=== PATIENT | female | born 1955 | race Caucasian/White ===

== ENCOUNTER 2017-04-13 23:39 | Emergency (ER) | payer OTHER ==
[~2017-04-13] VITALS: Ht 160 cm; Wt 122.7 kg
[~2017-04-13 23:39] MED LIST: ALBU1AER9 INH; FLUT0.0529; TRAM37.52 PO
[2017-04-13 23:46] VITALS: TEMP 36.5; Ht 160 cm; Wt 122.7 kg
[2017-04-14] MEDS ORDERED: KETOROLAC TROMETHAMINE 30 MG/ML VIAL IM STA (00:02)
[2017-04-14] MEDS ORDERED: LIDODERM (LIDOCAINE) PATCH 5% TD STA (00:02)
[2017-04-14] MEDS ORDERED: DIAZEPAM 5MG TAB PO ONE (00:15)
[2017-04-14] MEDS ORDERED: FLUO20CA35 PO (00:33)
--- NOTE | 2017-04-14 00:37 | EMERGENCY ROOM VISIT NOTE ---
History Report prepared by Yolande: Wander Brown Under the Supervision of: Dr. Cassidy Styles D.O. First contact with patient: 23:49 Chief Complaint: BACK PAIN Stated Complaint: BACK PAIN History of Present Illness The patient is a 61 year old female who presents to the Emergency Room with complaints of "progressively worsening" back pain that began to worsen last night. The patient states that she has had chronic back pain since 2010 when she had a ruptured and herniated disc. She did not have any surgical intervention following the injury, and has had pain since. The pain is usually more so on the left side in her left buttocks, and in her left leg. She states that she has more mobility of her right leg than her left as well. She denies any numbness or weakness in her lower extremities, and states that she only has the pain. The patient's pain worsened last night when she got out of bed to use the restroom. No falls or trauma. The pain she felt after standing up is "much worse" than her baseline chronic pain. She usually takes Tramadol at home as needed for pain, and has taken Cyclobenzaprine as a muscle relaxer. She denies any urinary or bowel movement irregularities recently, aside from having the flu about a month ago. 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 A total of 10 systems reviewed and were otherwise negative. Past Medical & Surgical Medical Problems: (1) DIVERTICULITIS COLON (W/O MENT OF HEMORRHAGE) (2) TOBACCO USE DISORDER Family History No pertinent family histories secondary to age. Social History Smoking Status: Current Every Day Smoker Alcohol Use: none Drug Use: none Housing Status: lives with family Occupation Status: retired Current/Historical Medications Scheduled Diazepam (Valium), 5 MG PO TID Diclofenac (Voltaren), 75 MG PO BID Lidocaine (Lidoderm Patch 5%), 1 PATCH TD DAILY Scheduled PRN Cyclobenzaprine Hcl (Flexeril), 10 MG PO TID PRN for SPASMS Tramadol-Acetaminophen (Ultracet), 1 TAB PO TID PRN for Pain Allergies Coded Allergies: Penicillins (Unverified Adverse Reaction, Unknown, FEVER, HIVES, 4/28/15) Uncoded Allergies: SULFA (Allergy, Intermediate, UNKNOWN, 07/27/12) BIAXIN (Allergy, Unknown, fever,n/v,headache,rash, 03/28/03) Physical Exam Vital Signs Date Time Temp Pulse Resp B/P (MAP) Pulse Ox O2 Delivery O2 Flow Rate FiO2 04/14/17 01:47 88 18 158/98 98 Room Air 04/13/17 23:46 36.5 65 18 143/81 98 Room Air Physical Exam GENERAL: Obese patient, alert, well appearing, well nourished, no distress, non- toxic EYE EXAM: normal conjunctiva, PERRL and EOM's grossly intact OROPHARYNX: no exudate, no erythema, lips, buccal mucosa, and tongue normal and mucous membranes are moist NECK: supple, no nuchal rigidity, no adenopathy, non-tender LUNGS: Clear to auscultation. Normal chest wall mechanics HEART: no murmurs, S1 normal and S2 normal ABDOMEN: abdomen soft, non-tender, normo-active bowel sounds, no masses, no rebound or guarding. BACK: Back is symmetrical on inspection and there is no deformity, no midline tenderness, no CVA tenderness. There is no reproducible tenderness. SKIN: no rashes and no bruising UPPER EXTREMITIES: upper extremities are grossly normal. LOWER EXTREMITIES: No pitting edema. Positive straight leg raise on the left, negative on the right. NEURO EXAM: Normal sensorium Medical Decision & Procedures Laboratory Results Test 04/14/17 00:50 Urine Color DK YELLOW Urine Appearance CLOUDY (CLEAR) Urine pH 5.0 (4.5-7.5) Urine Specific [place] 1.031 (1.000-1.030) Urine Protein NEG (NEG) Urine Glucose (UA) NEG (NEG) Urine Ketones TRACE (NEG) Urine Occult Blood NEG (NEG) Urine Nitrite NEG (NEG) Urine Bilirubin NEG (NEG) Urine Urobilinogen POS (NEG) Urine Leukocyte Esterase NEG (NEG) Urine WBC (Auto) 1-5 /hpf (0-5) Urine RBC (Auto) 0-4 /hpf (0-4) Urine Hyaline Casts (Auto) 1-5 /lpf (0-5) Urine Epithelial Cells (Auto) >30 /lpf (0-5) Urine Bacteria (Auto) NEG (NEG) Urine Crystals CALCIUM OXALATE (NONE Laboratory results per my review. Medications Administered Medications (Trade) Dose Ordered Sig/Luca Route Start Time Stop Time Status Last Admin Dose Admin Lidocaine (Lidoderm Patch 5%) 1 patch NOW STAT TD 04/14/17 00:02 04/14/17 00:06 DC 04/14/17 00:24 1 PATCH Ketorolac Tromethamine (Toradol Inj) 30 mg NOW STAT IM 04/14/17 00:02 04/14/17 00:07 DC 04/14/17 00:18 30 MG Diazepam (Valium Tab) 5 mg NOW ONCE PO 04/14/17 00:15 04/14/17 00:16 DC 04/14/17 00:18 5 MG ED Course 2354: The patient was evaluated in room A4. A complete history and physical exam was performed. 0002: Ordered Toradol 30 mg IM, Lidocaine 1 patch TD. 0015: Ordered Diazepam 5 mg PO. 0125: I checked on the patient at this time. She is feeling better. She is going to get up and try to move around. 0144: The nursing staff has informed me that the patient ambulated well, and feels much better with motion. The patient is ready to be discharged home. Medical Decision Differential diagnosis: Etiologies such as musculoskeletal, disc herniation, fracture, aortic disease, metastatic disease, cord compression, discitis, infection, renal colic, gastrointestinal, acute exacerbation of chronic back pain, sciatica, cauda equina, as well as others were entertained. Pt with chronic low back pain and acute nontraumatic exacerbation. No sx to suggest cauda equina, no risk factors for epidural abscess or hematoma. Pt improved here with meds, able to ambulate, no evidence of urinary pathology. Doubt vascular etiology. Doubt occult infectious etiology. Pt well appearing here. Discussed sx to watch/return for, f/u with PCP, possible outpt MRI and options available for this given her hx of claustrophobia. Pt verbalized understanding of all of this and was agreeable with the plan. Medication Reconcilliation Current Medication List: was personally reviewed by me Blood Pressure Screening Patient's blood pressure: Elevated blood pressure Blood pressure disposition: Elevated BP felt to be situational Impression Primary Impression: Low back pain Additional Impression: Sciatica Scribe Attestation The scribe's documentation has been prepared under my direction and personally reviewed by me in its entirety. I confirm that the note above accurately reflects all work, treatment, procedures, and medical decision making performed by me. Departure Information Dispostion Home / Self-Care Prescriptions Lidocaine (Lidoderm Patch 5%) 1 Ea Tdsy 1 PATCH TD DAILY for Pain, #1 BOX Prov: Cassidy Styles, DO 04/14/17 Diazepam (Valium) 5 Mg Tab 5 MG PO TID for Pain, #20 TAB Prov: Cassidy Styles, DO 04/14/17 Referrals Mane San M.D. (PCP) Patient Instructions My [facility] Additional Instructions Please follow-up with your family doctor and discuss with them sedation and open MRI possibly for additional evaluation of your back pain. Please use the medications as prescribed. If you have worsening pain, are unable to walk, develop numbness or tingling, have difficulty controlling bowel or bladder function, develop fevers, vomiting, abdominal pain, or you have any other new or concerning symptoms, please return to the emergency room. Problem Qualifiers Primary Impression: Low back pain Chronicity: chronic Back pain laterality: right Sciatica presence: with sciatica Sciatica laterality: sciatica of left side Qualified Codes: M54.42 - Lumbago with sciatica, left side; G89.29 - Other chronic pain Additional Impression: Sciatica Laterality: left Qualified Codes: M54.32 - Sciatica, left side
[2017-04-14] MEDS ORDERED: DICL-201 PO (01:04)
[2017-04-14] MEDS ORDERED: CYCL10TA6 PO (01:07)
[2017-04-14 01:47] VITALS: BP 158/98; PULSE 88; O2SAT 98
[2017-04-14] MEDS ORDERED: DIAZ-165 PO (01:57)
[2017-04-14] MEDS ORDERED: NF656 TD (01:57)
[2017-04-15] MEDS ORDERED: LDDP5 TOP (19:40)
[2017-04-15] MEDS ORDERED: DIAZ-165 PO (19:40)
== END 2017-04-14 02:12 | disposition home or self-care (01) ==
LOC: C.EDB 23:40 → C.EDA 04-14 02:12
DX: M54.42 Lumbago with sciatica, left side (principal); G89.29 Other chronic pain; K57.32 Diverticulitis of large intestine without perforation or abscess without bleeding; F17.210 Nicotine dependence, cigarettes, uncomplicated

== ENCOUNTER 2017-04-15 18:53 | Inpatient (IN) | payer OTHER ==
[~2017-04-15] VITALS: Ht 160 cm; Wt 48.8 kg
[~2017-04-15 18:53] MED LIST changes: -ALBU1AER9 INH; +CYCL10TA6 PO; +DIAZ-165 PO; +DICL-201 PO; -FLUT0.0529; +NF656 TD
[2017-04-15] MEDS ORDERED: ONDANSETRON INJ 2 MG/ML 2 ML VIAL IV STA (19:22)
[2017-04-15] MEDS ORDERED: KETOROLAC TROMETHAMINE 30 MG/ML VIAL IV STA (19:22)
[2017-04-15 19:40] LABS: BASO % 0.1 %; BASO ABS # 0.01 K/uL (0-0.2); EOS % 1.2 %; EOS ABS # 0.08 K/uL (0-0.5); HEMATOCRIT 46.1 % (37-47); HEMOGLOBIN 16.1 g/dL (12.0-16.0); IG# 0.01 K/uL (0.00-0.02); LYMPH % 31.1 %; LYMPH ABS # 2.08 K/uL (1.2-3.4); MEAN CELL VOLUME 89.7 fL (80-100); MEAN CORPUSCULAR HEMOGLOBIN 31.3 pg (25-34); MEAN CORPUSCULAR HGB CONC 34.9 g/dl (32-36); MEAN PLATELET VOLUME 9.8 fL (7.4-10.4); MONO ABS # 0.47 K/uL (0.11-0.59); NEUT % 60.5 %; NEUT ABS # 4.03 K/uL (1.4-6.5); PLATELET COUNT 242 K/uL (130-400); RED CELL DISTRIBUTION WIDTH CV 12.9 % (11.5-14.5); RED CELL DISTRIBUTION WIDTH SD 42.4 fL (36.4-46.3); WHITE BLOOD COUNT 6.68 K/uL (4.8-10.8)
[2017-04-15] MEDS ORDERED: DIAZ-165 PO (19:40)
[2017-04-15] MEDS ORDERED: LDDP5 TOP (19:40)
--- NOTE | 2017-04-15 19:52 | EMERGENCY ROOM VISIT NOTE ---
History Report prepared by Yolande: Angelica Bae Under the Supervision of: Dr. Chalino Huitron M.D. 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 Per daughter, the patient has been having back spasms, buttock pain, bilateral leg pain, leg weakness, and loss of appetite. She currently rates her pain a 10/10 in severity. The patient has a history of chronic back pain due to a herniated disc. The patient states that she cannot get out of bed. She was recently seen in the ED for similar symptoms. She notes that she is paranoid and scared of MRIs. She has taken Valium and Tramadol. She reports the pain is worsened with movement. She denies any falls. She denies any history of back surgeries. 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 Review of Systems See HPI for pertinent positives & negatives. A total of 10 systems reviewed and were otherwise negative. Past Medical & Surgical Medical Problems: (1) Asthma (2) borken jaw (3) Bronchitis (4) DIVERTICULITIS COLON (W/O MENT OF HEMORRHAGE) (5) Hernia (6) Intestinal gangrene (7) PNA (pneumonia) (8) TOBACCO USE DISORDER (9) Tumors (10) Ulcer Old medical records were reviewed. Nurse's notes were reviewed and I agree with. Family History Diabetes mellitus FHx: cancer Kidney disease Kidney stones Seizures Social History Smoking Status: Current Every Day Smoker (1 ppd) Alcohol Use: none Drug Use: none Housing Status: lives with family Occupation Status: retired Current/Historical Medications Scheduled Diazepam (Valium), 5 MG PO TID Scheduled PRN Cyclobenzaprine Hcl (Flexeril), 10 MG PO TID PRN for SPASMS Lidocaine (Lidocaine), 1 PATCH TOP DAILY PRN for Pain Tramadol-Acetaminophen (Ultracet), 1 TAB PO TID PRN for Pain Allergies Coded Allergies: Clarithromycin (Verified Allergy, Intermediate, RASH, DOAN, FEVER, N/V, ) Sulfa Antibiotics (Verified Allergy, Unknown, "CAN'T REMEMBER", 04/15/17) Penicillins (Verified Adverse Reaction, Unknown, FEVER, HIVES, 04/15/17) Physical Exam Vital Signs Date Time Temp Pulse Resp B/P (MAP) Pulse Ox O2 Delivery O2 Flow Rate FiO2 04/15/17 20:35 60 20 135/79 96 Room Air 04/15/17 19:01 36.3 70 18 135/82 94 Room Air Physical Exam General: Uncomfortable appearing middle-aged female in no acute distress. Complains of back pain worsened with movement. HEENT: Normal cephalic atraumatic. Pupils are equal round and reactive to light. Extraocular movements are intact. Oropharynx is pink with moist mucous membranes. No swelling of the mouth lips or tongue. Neck: Supple with a midline trachea. No meningeal signs or stiffness, no JVD or bruits. No Stridor. Chest: Clear to auscultation bilaterally. No wheezes or rhonchi. No increased work of breathing. Heart: regular rate and rhythm. Abdomen: Soft nontender, nondistended without rebound guarding or rigidity. Extremities: No cyanosis clubbing or edema. No calf tenderness or assymetry. No numbness. Mild weakness to left leg. Spine/Back. Tender to palpation in low back. Significant pain with movement. Skin: Good turgor without rashes. Neurologic exam: Cranial nerves two through 12 are intact. Motor and sensation are intact and symmetrical throughout. Medical Decision & Procedures ER Provider Diagnostic Interpretation: Radiology results as stated below per my review and radiologist interpretation: LUMBAR SPINE WITHOUT CLINICAL HISTORY: Low back pain. Back spasms. COMPARISON STUDY: No previous studies for comparison. TECHNIQUE: Axial images of the lumbar spine were obtained without IV contrast. Sagittal and coronal reconstructions were viewed. FINDINGS: Alignment of the lumbar spine is anatomic. Vertebral body heights are maintained. No fracture or osseous lesion is identified. Paravertebral soft tissues are unremarkable. There is moderate atherosclerotic plaque of the abdominal aorta which is normal in caliber. Central canal and neural foramen are suboptimally assessed by CT. However, there is mild multilevel degenerative disc disease and moderate multilevel facet arthrosis. There is no evidence for severe central canal stenosis. There is mild multilevel neural foraminal stenosis and suspected mild multilevel central canal stenosis. IMPRESSION: 1. No acute lumbar spine fracture or subluxation. 2. Mild multilevel degenerative disc disease and moderate multilevel facet arthrosis of the lumbar spine. Suboptimal evaluation of central canal and neural foramen given CT technique. Suspected mild multilevel central canal or neural foraminal stenosis. No disc herniation identified by CT. Electronically signed by: Favio Biswas M.D. 04/15/2017 8:40 PM Dictated Date/Time: 04/15/2017 8:34 PM Laboratory Results 04/15/17 19:30 Red Blood Count 5.14, Mean Corpuscular Volume 89.7, Mean Corpuscular Hemoglobin 31.3, Mean Corpuscular Hemoglobin Concent 34.9, Mean Platelet Volume 9.8, Neutrophils (%) (Auto) 60.5, Lymphocytes (%) (Auto) 31.1, Monocytes (%) (Auto) 7.0, Eosinophils (%) (Auto) 1.2, Basophils (%) (Auto) 0.1, Neutrophils # (Auto) 4.03, Lymphocytes # (Auto) 2.08, Monocytes # (Auto) 0.47, Eosinophils # (Auto) 0.08, Basophils # (Auto) 0.01 04/15/17 19:30 Test 04/15/17 19:30 White Blood Count 6.68 K/uL (4.8-10.8) Red Blood Count 5.14 M/uL (4.2-5.4) Hemoglobin 16.1 g/dL (12.0-16.0) Hematocrit 46.1 % (37-47) Mean Corpuscular Volume 89.7 fL (80-100) Mean Corpuscular Hemoglobin 31.3 pg (25-34) Mean Corpuscular Hemoglobin Concent 34.9 g/dl (32-36) Platelet Count 242 K/uL (130-400) Mean Platelet Volume 9.8 fL (7.4-10.4) Neutrophils (%) (Auto) 60.5 % Lymphocytes (%) (Auto) 31.1 % Monocytes (%) (Auto) 7.0 % Eosinophils (%) (Auto) 1.2 % Basophils (%) (Auto) 0.1 % Neutrophils # (Auto) 4.03 K/uL (1.4-6.5) Lymphocytes # (Auto) 2.08 K/uL (1.2-3.4) Monocytes # (Auto) 0.47 K/uL (0.11-0.59) Eosinophils # (Auto) 0.08 K/uL (0-0.5) Basophils # (Auto) 0.01 K/uL (0-0.2) RDW Standard Deviation 42.4 fL (36.4-46.3) RDW Coefficient of Variation 12.9 % (11.5-14.5) Immature Granulocyte % (Auto) 0.1 % Immature Granulocyte # (Auto) 0.01 K/uL (0.00-0.02) Anion Gap 3.0 mmol/L (3-11) Est Creatinine Clear Calc Drug Dose 115.7 ml/min Estimated GFR () 110.1 Estimated GFR (Non- 95.0 BUN/Creatinine Ratio 29.6 (10-20) Calcium Level 8.6 mg/dl (8.5-10.1) Magnesium Level 2.2 mg/dl (1.8-2.4) Total Bilirubin 0.7 mg/dl (0.2-1) Direct Bilirubin 0.1 mg/dl (0-0.2) Aspartate Amino Transf (AST/SGOT) 12 U/L (15-37) Alanine Aminotransferase (ALT/SGPT) 21 U/L (12-78) Alkaline Phosphatase 70 U/L (45-117) Total Protein 6.7 gm/dl (6.4-8.2) Albumin 3.2 gm/dl (3.4-5.0) Lipase 112 U/L (73-393) Laboratory studies as stated above per my review. Medications Administered Medications (Trade) Dose Ordered Sig/Luca Route Start Time Stop Time Status Last Admin Dose Admin Ketorolac Tromethamine (Toradol Inj) 30 mg NOW STAT IV 04/15/17 19:22 04/15/17 19:24 DC 04/15/17 19:42 30 MG Ondansetron HCl (Zofran Inj) 4 mg NOW STAT IV 04/15/17 19:22 04/15/17 19:24 DC 04/15/17 19:41 4 MG Morphine Sulfate (MoRPHine SULFATE INJ) 2 mg NOW STAT IV 04/15/17 21:01 04/15/17 21:02 DC 04/15/17 21:32 2 MG ED Course 1910: Past medical records reviewed. The patient was evaluated in room C4, and a complete history and physical examination were performed. 1921: Ordered Zofran 4 mg IV and Toradol 30 mg IV 2019: I reassessed the patient at this time. The patient is out at radiology. The patient's daughter states the Toradol is helping the patient's pain. 2100: I reassessed the patient at this time. She is resting comfortably. I discussed the results and treatment plan with the patient. I answered all pertaining questions that she had. She expressed understanding and verbalized agreement. The patient will be further evaluated. 2100: Ordered Morphine Sulfate 2 mg IV 2109: [facility] We discussed the patients case. [facility] Medical Decision Differentials include, but are not limited to: lumbar disc disease, cauda equina , infection, and electrolyte or metabolic abnormality. This patient comes in as described above. She returns ER after having continuing back pain. She has had a history of back pain but never quite this bad. She has no numbness in her legs or buttocks and has nothing to suggest cauda equina syndrome. Her legs may be weak but seems more pain than anything. Questionable weakness in the left leg. It was extremely difficult to even get out of the wheelchair. IV access established and blood work was obtained. I have reviewed her records from the other night. I did order a CAT scan. The patient does not feel she can tolerate an MRI she has severe claustrophobia and pain at present. She has no white count or fever to suggest infection. She's no acute electrolyte or metabolic abnormalities. CAT scan of her back shows degenerative changes. She was feeling better after receiving IV Toradol and IV Zofran was still had a significant amount of pain and was given additional IV morphine. I think that she needs to be admitted for pain management further treatment and evaluation. I consulted Dr. Guallpa to see her in the emergency department. Medication Reconcilliation Current Medication List: was personally reviewed by me Blood Pressure Screening Patient's blood pressure: Elevated blood pressure (mildly) Followed up in the hospital. Consults Time Called: 2109 Consulting Physician: [facility] I spoke with Shakira Ochoa. We discussed the patients case. The patient will be evaluated by the [facility] for further management. Impression Primary Impression: Intractable back pain Scribe Attestation The scribe's documentation has been prepared under my direction and personally reviewed by me in its entirety. I confirm that the note above accurately reflects all work, treatment, procedures, and medical decision making performed by me. Departure Information Dispostion Being Evaluated By Hospitalist Referrals No Doctor, Assigned (PCP) Patient Instructions My [facility]
[2017-04-15 19:58] LABS: ALBUMIN 3.2 gm/dl (3.4-5.0); CALCIUM 8.6 mg/dl (8.5-10.1); CREATININE 0.64 mg/dl (0.60-1.20); POTASSIUM 3.5 mmol/L (3.5-5.1)
[2017-04-15 20:01] LABS: TOTAL PROTEIN 6.7 gm/dl (6.4-8.2)
--- NOTE | 2017-04-15 20:41 | DIAGNOSTIC IMAGING REPORT ---
LUMBAR SPINE WITHOUT CLINICAL HISTORY: Low back pain. Back spasms. COMPARISON STUDY: No previous studies for comparison. TECHNIQUE: Axial images of the lumbar spine were obtained without IV contrast. Sagittal and coronal reconstructions were viewed. FINDINGS: Alignment of the lumbar spine is anatomic. Vertebral body heights are maintained. No fracture or osseous lesion is identified. Paravertebral soft tissues are unremarkable. There is moderate atherosclerotic plaque of the abdominal aorta which is normal in caliber. Central canal and neural foramen are suboptimally assessed by CT. However, there is mild multilevel degenerative disc disease and moderate multilevel facet arthrosis. There is no evidence for severe central canal stenosis. There is mild multilevel neural foraminal stenosis and suspected mild multilevel central canal stenosis. IMPRESSION: 1. No acute lumbar spine fracture or subluxation. 2. Mild multilevel degenerative disc disease and moderate multilevel facet arthrosis of the lumbar spine. Suboptimal evaluation of central canal and neural foramen given CT technique. Suspected mild multilevel central canal or neural foraminal stenosis. No disc herniation identified by CT. Electronically signed by: Favio Biswas M.D. 04/15/2017 8:40 PM Dictated Date/Time: 04/15/2017 8:34 PM
[2017-04-15] MEDS ORDERED: MoRPHine SULFATE 2 MG/ML CARP IV STA (21:01)
[2017-04-15] MEDS ORDERED: LORAZEPAM 2 MG/ML 1 ML VIAL IV PRN (22:00)
[2017-04-15] MEDS ORDERED: ACETAMINOPHEN 325 MG TAB PO PRN (22:00)
[2017-04-15] MEDS ORDERED: CYCLOBENZAPRINE HCL 10 MG TAB PO PRN (22:00)
[2017-04-15] MEDS ORDERED: PROCHLORPERAZINE INJ 5 MG in SYRINGE 4 ML IV PRN (22:00)
[2017-04-15 22:30] VITALS: BP 162/88; PULSE 66; TEMP 37; O2SAT 96; Ht 160 cm; Wt 48.8 kg
[2017-04-15] MEDS ORDERED: IV FLUIDS COMPLETED PRN (22:45)
[2017-04-15] MEDS ORDERED: LIDODERM (LIDOCAINE) PATCH 5% TD ONE (23:00)
--- NOTE | 2017-04-16 01:10 | HISTORY & PHYSICAL EXAMINATION ---
DATE OF ADMISSION: 04/15/2017 PRIMARY CARE PHYSICIAN: Dr. Corey Prabhakar MD. CHIEF COMPLAINT: Back pain. HISTORY OF PRESENT ILLNESS: History obtained from patient, family, and records. Medical history is significant for HANS on CPAP, ongoing tobacco abuse, chronic back pain. As per patient account, she has had chronic back pain since 2010. Surgery recommended in [place] however patient refused. Intermittent "flareups" of back pain over the last few years. The last few days, patient noted worsening of low back pain with radiation to the left lower extremity. Left lower extremity weakness noted. No unusual incontinence. Patient was seen at the ER 2 nights ago. Discharged on lidocaine patch and benzo as muscle relaxant. Patient returned to the ER because of intractable pain. She could not walk around. No fever, no chills. MEDICAL HISTORY: As above. SURGERIES: She has had bowel surgery, oophorectomy. HOME MEDICATIONS: Include Flexeril, Valium, lidocaine, Ultracet. ALLERGIES: ERYTHROMYCIN, PENICILLIN, SULFA. FAMILY HISTORY: Hypertension, diabetes. PERSONAL AND SOCIAL HISTORY: One pack daily. No chronic intake of alcoholic beverages. 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 REVIEW OF SYSTEMS: As per HPI, all 10 systems reviewed. All other ROS negative. PHYSICAL EXAMINATION: VITAL SIGNS: Blood pressure noted to be 135/82, pulse rate 70, RR 18, temperature 36.3, sats 95 on room air. GENERAL: Noted to be uncomfortable. No respiratory distress. SKIN: Normal color, warm. HEENT: [place] palpebral conjunctiva. No ptosis. Dry mucosa. NECK: Short neck. No tenderness. CHEST: Decreased effort. No tenderness. HEART: Regular rate and rhythm, no murmur. ABDOMEN: Soft. Some distention BACK: tenderness on the low back. Positive straight leg raise exam on the left. EXTREMITIES: Minimal LE edema, chronic, no tenderness. No other gross deformities. NEUROLOGIC: Coherent. No gross focality except for back. LABORATORY DATA: Hemoglobin 16, hematocrit 46, white cell count 6.6, platelets 242. Sodium 139, potassium 3.5, chloride 104, CO2 30, BUN 19, creatinine 0.6, glucose 100. CT, no acute lumbar spine fracture or subluxation, mild multilevel degenerative disk disease, moderate multilevel facet arthrosis of the lumbar spine, suspected foraminal stenosis ASSESSMENT: 1. Intractable back pain. 2. Ongoing tobacco abuse. 3. HANS on CPAP PLAN: OBS [facility] spine consult. RE intractable back pain Nicotine patch. Deep venous thrombosis prophylaxis: SCDs, possible procedure. Full code. MTDD
[2017-04-16] MEDS: MoRPHine SULFATE 4 MG/ML 1 ML CARP\\VIAL IV PRN ×3 (01:17→09:54)
[2017-04-16] MEDS: KETOROLAC TROMETHAMINE 30 MG/ML VIAL IV PRN ×3 (04:18→21:56)
[2017-04-16 05:46] VITALS: BP 129/84
[2017-04-16] MEDS: NICOTINE 21 MG/24 HR TDSY TD SCH (07:42)
[2017-04-16] MEDS: CYCLOBENZAPRINE HCL 10 MG TAB PO PRN (07:42)
[2017-04-16 07:47] VITALS: BP 152/78; PULSE 68; TEMP 36.5; O2SAT 93
[2017-04-16 07:49] VITALS: O2SAT 93
--- NOTE | 2017-04-16 10:28 | Orthopedic Consultation ---
Orthopedic Consultation Date of Consultation: Apr 16, 2017. Attending Physician: Nick Raphael MD Reason for Consultation: Back and left leg pain History of Present Illness This is a 61-year-old female that appears older than stated age. She's had a history of back pain for several years. She denies any specific trauma fall or event. She's had a recent exacerbation of her pain which she describes incapacitating. Required hospitalization. She denies any change in bowel bladder function. She describes describes her symptoms involving lumbar region favoring the left paravertebral muscular future. It does radiate down the left leg into her left calf. She denies any pain extending into the foot. She denies any right lower extremity pain. Past Medical/Surgical History Medical Problems: (1) Intractable back pain Status: Acute (2) Low back pain Status: Acute (3) Sciatica Status: Acute Family History Diabetes mellitus FHx: cancer Kidney disease Kidney stones Seizures Social History Smoking Status: Current Every Day Smoker Drug Use: none Housing Status: lives with family Occupation Status: retired Allergies Coded Allergies: Clarithromycin (Verified Allergy, Intermediate, RASH, DOAN, FEVER, N/V, ) Sulfa Antibiotics (Verified Allergy, Unknown, "CAN'T REMEMBER", 04/15/17) Penicillins (Verified Adverse Reaction, Unknown, FEVER, HIVES, 04/15/17) Home Medications Scheduled Diazepam (Valium), 5 MG PO TID Scheduled PRN Cyclobenzaprine Hcl (Flexeril), 10 MG PO TID PRN for SPASMS Lidocaine (Lidocaine), 1 PATCH TOP DAILY PRN for Pain Tramadol-Acetaminophen (Ultracet), 1 TAB PO TID PRN for Pain Current Inpatient Medications Current Inpatient Medications Medications (Trade) Dose Ordered Sig/Luca Route Start Time Stop Time Status Last Admin Dose Admin Lidocaine (Lidoderm Patch 5%) 1 patch QAM TD 04/17/17 09:00 05/17/17 08:59 Miscellaneous (Remove Lidoderm Patch) 1 ea DAILY@21 N/A 04/16/17 11:00 05/16/17 10:59 Ketorolac Tromethamine (Toradol Inj) 30 mg Q6H PRN IV 04/15/17 22:00 04/20/17 21:59 04/16/17 04:18 30 MG Ibuprofen (Advil Tab) 400 mg Q6H PRN PO 04/15/17 22:00 05/15/17 21:59 Prochlorperazine Edisylate 5 mg/ Syringe 5 ml @ 5 mls/min Q6H PRN IV 04/15/17 22:00 05/15/17 21:59 Lorazepam (Ativan Inj) 0.5 mg Q4H PRN IV 04/15/17 22:00 05/15/17 21:59 Morphine Sulfate (MoRPHine SULFATE INJ) 4 mg Q4H PRN IV 04/15/17 22:00 04/29/17 21:59 04/16/17 09:54 4 MG Tramadol HCl (Ultram Tab) not relieved ... Q4H PRN PO 04/15/17 22:00 05/15/17 21:59 Cyclobenzaprine HCl (Flexeril Tab) 10 mg TID PRN PO 04/15/17 22:00 05/15/17 21:59 04/16/17 07:42 10 MG Nicotine (Nicoderm Cq 21MG Patch) 1 patch QAM TD 04/16/17 09:00 05/16/17 08:59 Miscellaneous (Remove Nicoderm Patch) 1 ea HS N/A 04/16/17 21:00 05/16/17 20:59 Acetaminophen (Tylenol Tab) 650 mg Q4H PRN PO 04/15/17 22:00 05/15/17 21:59 Miscellaneous (Iv Fluids Completed) 1 ea PRN PRN N/A 04/15/17 22:45 04/15/18 22:44 Lorazepam 0.5 mg/ Syringe 1 ml @ 1 mls/min Q4H PRN IV 04/15/17 23:15 05/15/17 23:14 Physical Exam Date Time Temp Pulse Resp B/P (MAP) Pulse Ox O2 Delivery O2 Flow Rate FiO2 04/16/17 07:49 93 Room Air 04/16/17 07:47 36.5 68 19 152/78 (102) 93 Room Air 04/16/17 07:45 Room Air 04/16/17 05:46 129/84 (99) 04/16/17 00:24 Room Air 04/15/17 22:30 37.0 66 16 162/88 96 Room Air 04/15/17 20:35 60 20 135/79 96 Room Air 04/15/17 19:01 36.3 70 18 135/82 94 Room Air Patient is lying in bed. She is alert and cooperative. Inspection of her back reveals no evidence of erythema. There is small ecchymosis to the left side. She is modestly tender to palpation. There is no abnormal skin markings. She exhibits reasonable strength testing bilateral x-rays. Sensory is intact bilateral extremity's. Laboratory Results Last 24 Hours Test 04/15/17 19:30 White Blood Count 6.68 K/uL Red Blood Count 5.14 M/uL Hemoglobin 16.1 g/dL Hematocrit 46.1 % Mean Corpuscular Volume 89.7 fL Mean Corpuscular Hemoglobin 31.3 pg Mean Corpuscular Hemoglobin Concent 34.9 g/dl Platelet Count 242 K/uL Mean Platelet Volume 9.8 fL Neutrophils (%) (Auto) 60.5 % Lymphocytes (%) (Auto) 31.1 % Monocytes (%) (Auto) 7.0 % Eosinophils (%) (Auto) 1.2 % Basophils (%) (Auto) 0.1 % Neutrophils # (Auto) 4.03 K/uL Lymphocytes # (Auto) 2.08 K/uL Monocytes # (Auto) 0.47 K/uL Eosinophils # (Auto) 0.08 K/uL Basophils # (Auto) 0.01 K/uL RDW Standard Deviation 42.4 fL RDW Coefficient of Variation 12.9 % Immature Granulocyte % (Auto) 0.1 % Immature Granulocyte # (Auto) 0.01 K/uL Sodium Level 137 mmol/L Potassium Level 3.5 mmol/L Chloride Level 104 mmol/L Carbon Dioxide Level 30 mmol/L Anion Gap 3.0 mmol/L Blood Urea Nitrogen 19 mg/dl Creatinine 0.64 mg/dl Est Creatinine Clear Calc Drug Dose 115.7 ml/min Estimated GFR () 110.1 Estimated GFR (Non- 95.0 BUN/Creatinine Ratio 29.6 Random Glucose 124 mg/dl Calcium Level 8.6 mg/dl Magnesium Level 2.2 mg/dl Total Bilirubin 0.7 mg/dl Direct Bilirubin 0.1 mg/dl Aspartate Amino Transf (AST/SGOT) 12 U/L Alanine Aminotransferase (ALT/SGPT) 21 U/L Alkaline Phosphatase 70 U/L Total Protein 6.7 gm/dl Albumin 3.2 gm/dl Lipase 112 U/L Assessment & Plan Assessment acute on chronic persistent back pain. Plan at this time I discussed with the patient the desire for improved imaging. We will begin with standing x-rays lumbar spine. We will also try to obtain an MRI of the lumbar spine. She may require sedation to complete this. She is quite claustrophobic. I did not appreciate any emergency in her presentation of her. There is no neurologic decline at this time. Pending these results we may need to consider consultation with pain management.
[2017-04-16] MEDS: TRAMADOL HCL 50 MG TAB PO PRN (11:28)
--- NOTE | 2017-04-16 15:07 | DIAGNOSTIC IMAGING REPORT ---
LUMBAR SPINE 4 VIEWS CLINICAL HISTORY: Back pain COMPARISON STUDY: CT scan dated 04/15/2017 FINDINGS: AP and lateral standing views of the lumbar spine are provided for interpretation. No fractures or subluxations are visualized. No destructive lesions are evident. IMPRESSION: No fractures or subluxations identified. Electronically signed by: Manjit Hernandez M.D. 04/16/2017 3:06 PM Dictated Date/Time: 04/16/2017 3:05 PM
[2017-04-16 15:10] VITALS: BP 131/82; PULSE 72; TEMP 36.6; O2SAT 93
--- NOTE | 2017-04-16 17:12 | Progress Note ---
Internal Med Progress Note Date of Service: Apr 16, 2017. Provider Documentation: SUBJECTIVE: has back pain going on for some time afebrile walked some in room with walker says she needs to be knocked out if MRI is needed OBJECTIVE: Vital Signs-as noted below Exam: General-alert and oriented. Not in distress. Obese ENT-Normal hearing Neck-no neck masses supple Lungs-Normal breath sounds no rhonchi present no crackles present Heart-S1 and S2 heard regular rate and rthym, no murmurs Abdomen-Soft bowel sounds present non tender distended Extremities-no edema no erythema Neuro-alert and awake moves extremities Lab data as noted below. ASSESSMENT & PLAN: 1. Intractable back pain. pain control pain manegement consult ortho on board lumbar spine x ray unremarkable if MRi needed patient may need anesthesia as she says is very claustrophobic. 2. Ongoing tobacco abuse. 3. HANS on CPAP DVT PROPHYLAXIS hep sub q DISPOSITION to be determined Vital Signs: Date Time Temp Pulse Resp B/P (MAP) Pulse Ox O2 Delivery O2 Flow Rate FiO2 04/16/17 15:10 36.6 72 18 131/82 (98) 93 Room Air 04/16/17 15:05 Room Air 04/16/17 07:49 93 Room Air 04/16/17 07:47 36.5 68 19 152/78 (102) 93 Room Air 04/16/17 07:45 Room Air 04/16/17 05:46 129/84 (99) 04/16/17 00:24 Room Air 04/15/17 22:30 37.0 66 16 162/88 96 Room Air 04/15/17 20:35 60 20 135/79 96 Room Air 04/15/17 19:01 36.3 70 18 135/82 94 Room Air Lab Results: Results Past 24 Hours Test 04/15/17 19:30 Range/Units White Blood Count 6.68 4.8-10.8 K/uL Red Blood Count 5.14 4.2-5.4 M/uL Hemoglobin 16.1 12.0-16.0 g/dL Hematocrit 46.1 37-47 % Mean Corpuscular Volume 89.7 80-100 fL Mean Corpuscular Hemoglobin 31.3 25-34 pg Mean Corpuscular Hemoglobin Concent 34.9 32-36 g/dl Platelet Count 242 130-400 K/uL Mean Platelet Volume 9.8 7.4-10.4 fL Neutrophils (%) (Auto) 60.5 % Lymphocytes (%) (Auto) 31.1 % Monocytes (%) (Auto) 7.0 % Eosinophils (%) (Auto) 1.2 % Basophils (%) (Auto) 0.1 % Neutrophils # (Auto) 4.03 1.4-6.5 K/uL Lymphocytes # (Auto) 2.08 1.2-3.4 K/uL Monocytes # (Auto) 0.47 0.11-0.59 K/uL Eosinophils # (Auto) 0.08 0-0.5 K/uL Basophils # (Auto) 0.01 0-0.2 K/uL RDW Standard Deviation 42.4 36.4-46.3 fL RDW Coefficient of Variation 12.9 11.5-14.5 % Immature Granulocyte % (Auto) 0.1 % Immature Granulocyte # (Auto) 0.01 0.00-0.02 K/uL Sodium Level 137 136-145 mmol/L Potassium Level 3.5 3.5-5.1 mmol/L Chloride Level 104 98-107 mmol/L Carbon Dioxide Level 30 21-32 mmol/L Anion Gap 3.0 3-11 mmol/L Blood Urea Nitrogen 19 7-18 mg/dl Creatinine 0.64 0.60-1.20 mg/dl Est Creatinine Clear Calc Drug Dose 115.7 ml/min Estimated GFR () 110.1 Estimated GFR (Non- 95.0 BUN/Creatinine Ratio 29.6 10-20 Random Glucose 124 70-99 mg/dl Calcium Level 8.6 8.5-10.1 mg/dl Magnesium Level 2.2 1.8-2.4 mg/dl Total Bilirubin 0.7 0.2-1 mg/dl Direct Bilirubin 0.1 0-0.2 mg/dl Aspartate Amino Transf (AST/SGOT) 12 15-37 U/L Alanine Aminotransferase (ALT/SGPT) 21 12-78 U/L Alkaline Phosphatase 70 45-117 U/L Total Protein 6.7 6.4-8.2 gm/dl Albumin 3.2 3.4-5.0 gm/dl Lipase 112 73-393 U/L
[2017-04-16 22:45] VITALS: BP 127/75; PULSE 78; TEMP 36.7; O2SAT 95
[2017-04-17] MEDS: KETOROLAC TROMETHAMINE 30 MG/ML VIAL IV PRN ×2 (06:26→12:42)
[2017-04-17] MEDS: CYCLOBENZAPRINE HCL 10 MG TAB PO PRN (06:26)
[2017-04-17 07:05] VITALS: BP 135/83; PULSE 61; TEMP 36.8; O2SAT 94
[2017-04-17] MEDS ORDERED: METHYLPREDNISOLONE 4MG TAB, 6 DAY TAPER PO SCH (09:00)
[2017-04-17] MEDS: LIDODERM (LIDOCAINE) PATCH 5% TD SCH (09:00)
[2017-04-17] MEDS: NICOTINE 21 MG/24 HR TDSY TD SCH (09:00)
[2017-04-17] MEDS ORDERED: HYDROmorphone INJ 1 MG/ML SYR IV SCH (09:00)
[2017-04-17] MEDS ORDERED: DIAZEPAM 5MG TAB PO SCH (09:00)
--- NOTE | 2017-04-17 10:04 | Pain Management Consultation ---
Pain Management Consultation Date of Consultation Apr 17, 2017. Reason for Consultation lumbago Pain Location 1 - 2 - History 61-year-old morbidly obese female presents with a multiple day history of 90% axial L4 through S1 lumbar ago and 10% left lower extremity down posterior lateral thigh to the level of the calf radicular symptoms. She states that she woke up with this pain and did not experience any trauma or other etiology of pain. She states that she had a similar occurrence while living in [place] in 2010. She states that she did not have any specific intervention at that time and simply resolved within a few months. She admits that the pain is deep aching stabbing and at times shooting. She denies any right lower extremity radicular symptoms. She denies any bowel or bladder incontinence, motor weakness, foot drop, fever, night sweats, chills, falls. She admits the pain ranges between 3 and 10 out of 10 worst with activity and turning in bed. She was in the emergency room at [facility] a few days back and sent home with Lidoderm patch and muscle relaxants with minimal efficacy. She was seen during this hospitalization by Dr. Solomon Hylton who offered no surgical intervention at this time. She reports that she has been unable in the past have an MRI scan due to extreme claustrophobia. 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 Allergies Coded Allergies: Clarithromycin (Verified Allergy, Intermediate, RASH, DOAN, FEVER, N/V, ) Sulfa Antibiotics (Verified Allergy, Unknown, "CAN'T REMEMBER", 04/15/17) Penicillins (Verified Adverse Reaction, Unknown, FEVER, HIVES, 04/15/17) Medications Current Inpatient Medications Medications (Trade) Dose Ordered Sig/Luca Route Start Time Stop Time Status Last Admin Dose Admin Lidocaine (Lidoderm Patch 5%) 1 patch QAM TD 04/17/17 09:00 05/17/17 08:59 Miscellaneous (Remove Lidoderm Patch) 1 ea DAILY@21 N/A 04/16/17 11:00 05/16/17 10:59 04/16/17 11:29 1 EA Ketorolac Tromethamine (Toradol Inj) 30 mg Q6H PRN IV 04/15/17 22:00 04/20/17 21:59 04/17/17 06:26 30 MG Ibuprofen (Advil Tab) 400 mg Q6H PRN PO 04/15/17 22:00 05/15/17 21:59 Prochlorperazine Edisylate 5 mg/ Syringe 5 ml @ 5 mls/min Q6H PRN IV 04/15/17 22:00 05/15/17 21:59 Lorazepam (Ativan Inj) 0.5 mg Q4H PRN IV 04/15/17 22:00 05/15/17 21:59 Morphine Sulfate (MoRPHine SULFATE INJ) 4 mg Q4H PRN IV 04/15/17 22:00 04/29/17 21:59 04/16/17 09:54 4 MG Tramadol HCl (Ultram Tab) not relieved ... Q4H PRN PO 04/15/17 22:00 05/15/17 21:59 04/16/17 11:28 50 MG Cyclobenzaprine HCl (Flexeril Tab) 10 mg TID PRN PO 04/15/17 22:00 05/15/17 21:59 04/17/17 06:26 10 MG Nicotine (Nicoderm Cq 21MG Patch) 1 patch QAM TD 04/16/17 09:00 05/16/17 08:59 Miscellaneous (Remove Nicoderm Patch) 1 ea HS N/A 04/16/17 21:00 05/16/17 20:59 Acetaminophen (Tylenol Tab) 650 mg Q4H PRN PO 04/15/17 22:00 05/15/17 21:59 Miscellaneous (Iv Fluids Completed) 1 ea PRN PRN N/A 04/15/17 22:45 04/15/18 22:44 Lorazepam 0.5 mg/ Syringe 1 ml @ 1 mls/min Q4H PRN IV 04/15/17 23:15 05/15/17 23:14 Methylprednisolone (Medrol Dosepak 4mg Tab, 6 Day Taper) 1 ea UD PO 04/17/17 09:00 05/17/17 08:59 UNV Diazepam (Valium Tab) 5 mg TODAY@0900 PO 04/17/17 09:00 04/17/17 14:00 Hydromorphone HCl (Dilaudid Inj) 1 mg TODAY@0900 IV 04/17/17 09:00 04/17/17 14:00 Gabapentin (Neurontin Cap) 300 mg BID PO 04/17/17 09:00 05/17/17 08:59 Methylprednisolone (Medrol Tab) 8 mg 07,21 PO 04/17/17 10:00 04/17/17 21:01 Methylprednisolone (Medrol Tab) 4 mg 13,18 PO 04/17/17 13:00 04/17/17 18:01 Methylprednisolone (Medrol Tab) 4 mg 07,13,18 PO 04/18/17 07:00 04/18/17 18:01 Methylprednisolone (Medrol Tab) 8 mg HS PO 04/18/17 21:00 04/18/17 21:01 Methylprednisolone (Medrol Tab) 4 mg 07,13,18,21 PO 04/19/17 07:00 04/19/17 21:01 Methylprednisolone (Medrol Tab) 4 mg 07,13,21 PO 04/20/17 07:00 04/20/17 21:01 Methylprednisolone (Medrol Tab) 4 mg 07,21 PO 04/21/17 07:00 04/21/17 21:01 Methylprednisolone (Medrol Tab) 4 mg 07 PO 04/22/17 07:00 04/22/17 07:01 Review of Systems 10 point review of systems was otherwise negative aside from HPI Physical Exam Height & Weight: Height 5 feet, 3.00 inches. Weight 48.800 (Kilograms) 275 (Pounds) Last Vital Signs Documentation Date Time Temp Pulse Resp B/P (MAP) Pulse Ox O2 Delivery O2 Flow Rate FiO2 04/17/17 07:50 Room Air 04/17/17 07:05 36.8 61 17 135/83 (100) 94 Exam: GENERAL: 61-year-old female who is awake, alert and oriented. Appears well developed. Is in no distress at the present time. She is morbidly obese and significantly deconditioned laying in bed during the examination. She has mild to moderate difficulty with log rolling in bed PSYCHIATRIC: Demonstrates normal and clear sensorium. Mood and affect are appropriate. Short-term and long-term memory is intact. HEAD AND NECK: No obvious trauma. Demonstrates full range of motion of the cervical spine. No lymphadenopathy is noted. Trachea midline. No thyromegaly noted. EARS, EYES AND NOSE: Mucous membranes pink and moist. No mucosal lesions noted. Tongue midline. LUNGS: No audible wheezes or rhonchi and normal chest excursion is noted BREASTS: Deferred. CARDIAC: Regular rate and rhythm ABDOMEN: Normal bowel sounds. Soft nontender with mild distention. No organomegaly appreciated. BACK: Inspection of the lumbar spine demonstrates normal curvatures. No lesions are noted in the lumbar spine region. Provocative testing of the facet joints and the sacroiliac joints bilaterally including 5 provocative tests are negative. No myofascial tenderness or trigger points identifiable in the paraspinous musculature. Neurologically, straight leg raising is negative bilaterally past 90 and no changes noted Achilles stretch. She is nontender over bilateral greater trochanters. NEUROLOGICAL: Cranial nerves II through XII grossly intact. No gross sensory or motor deficits noted in the upper extremity. Sensation and motor strength in the lower extremity are symmetrical without deficit. No pathologic reflexes are noted in the lower extremities. Gait is observed patient was lying in bed during examination. Reflexes: Biceps L [+2] R [+2] Triceps L [+2] R [+2] Brachioradialis L [+2] R [+2] patellar Reflex L [+2] R [+2] Achilles Reflex L [+]2 R [+2] Laboratory Laboratory Results (Last CBC): 04/15/17 19:30 Red Blood Count 5.14, Mean Corpuscular Volume 89.7, Mean Corpuscular Hemoglobin 31.3, Mean Corpuscular Hemoglobin Concent 34.9, Mean Platelet Volume 9.8, Neutrophils (%) (Auto) 60.5, Lymphocytes (%) (Auto) 31.1, Monocytes (%) (Auto) 7.0, Eosinophils (%) (Auto) 1.2, Basophils (%) (Auto) 0.1, Neutrophils # (Auto) 4.03, Lymphocytes # (Auto) 2.08, Monocytes # (Auto) 0.47, Eosinophils # (Auto) 0.08, Basophils # (Auto) 0.[address] Findings Patient: BRANDY HARO Address1: [address] [facility] Rec: [id number] Address2: [facility] [address] Acct ID: [id number] [facility] Zip: [place] [address] Date: 1955 Sex: F Room/Bed: Ref Phy: Corey Prabhakar M.D. SC: C.EDC Att Phy: Report #: [id number] Isatu Phy: Corey Prabhakar M.D. Test: LSWO Admit Phy: Entry Manager: KAVITA Interpreting Phy: Favio Biswas MD Diagnosis: BACK PAIN/SPASMS Ordering Phy: Chalino Huitron M.D. Service Date: 04/15/17 Admit Date: 04/15/17 MNE: [id number] CONF: DICTATED BY: Favio iBswas MD]] CC: Chalino Huitron M.D. Oesterling, Brett, M.D. Endcc: [~ rep ct add3]] LUMBAR SPINE WITHOUT CLINICAL HISTORY: Low back pain. Back spasms. COMPARISON STUDY: No previous studies for comparison. TECHNIQUE: Axial images of the lumbar spine were obtained without IV contrast. Sagittal and coronal reconstructions were viewed. FINDINGS: Alignment of the lumbar spine is anatomic. Vertebral body heights are maintained. No fracture or osseous lesion is identified. Paravertebral soft tissues are unremarkable. There is moderate atherosclerotic plaque of the abdominal aorta which is normal in caliber. Central canal and neural foramen are suboptimally assessed by CT. However, there is mild multilevel degenerative disc disease and moderate multilevel facet arthrosis. There is no evidence for severe central canal stenosis. There is mild multilevel neural foraminal stenosis and suspected mild multilevel central canal stenosis. IMPRESSION: 1. No acute lumbar spine fracture or subluxation. 2. Mild multilevel degenerative disc disease and moderate multilevel facet arthrosis of the lumbar spine. Suboptimal evaluation of central canal and neural foramen given CT technique. Suspected mild multilevel central canal or neural foraminal stenosis. No disc herniation identified by CT. Other Findings Patient: BRANDY HARO Address1: [address] [facility] Rec: [id number] Address2: [facility] [address] Acct ID: [id number] [facility] Zip: [place] [address] Date: 1955 Sex: F Room/Bed: N376-1 Ref Phy: Corey Prabhakar M.D. SC: UdayMSN Att Phy: Nick Raphael MD Report #: [id number] Isatu Phy: Corey Prabhakar M.D. Test: [id number] Admit Phy: Nick Raphael MD Entry Manager: JAROCHO Interpreting Phy: Manjit Hernandez M.D. Diagnosis: INTRACTABLE BACK PAIN Ordering Phy: Myron Hylton D.O. Service Date: 04/16/17 Admit Date: 04/15/1800/07/18 MNE: [id number] CONF: DICTATED BY: Manjit Hernandez M.D.]] CC: Myron Hylton D.O. Oesterling, Brett, M.D. Palepu, Rajendra P., MD Endcc: [~ rep ct add3]] LUMBAR SPINE 4 VIEWS CLINICAL HISTORY: Back pain COMPARISON STUDY: CT scan dated 04/15/2017 FINDINGS: AP and lateral standing views of the lumbar spine are provided for interpretation. No fractures or subluxations are visualized. No destructive lesions are evident. IMPRESSION: No fractures or subluxations identified. Past Records Previous Records: personally reviewed by me Assessment 1. lumbago 2. left lower extremity lumbar radiculitis 3. morbid obesity 4. significant deconditioning 5. claustrophobia reported per patient Recommendations 1. Recommend MRI of her lumbar spine without contrast to delineate any possible nerve or disc pathology. She will be given oral Valium and IV hydromorphone prior to MRI to diminish claustrophobic symptoms. Orders are written 2. Recommend Medrol Dosepak 3. Recommend initiation of gabapentin 300 mg by mouth twice a day 4. Physical Therapy as previously ordered 5. Recommend continued utilization of tramadol with IV morphine as backup should she have continued pain 6. Further recommendations pending MRI results. If she is unable to complete MRI of her lumbar spine may require anesthesia assistance to complete MRI.
[2017-04-17] MEDS: METHYLPREDNISOLONE 4 MG TAB PO SCH ×4 (10:59→22:58)
[2017-04-17] MEDS: GABAPENTIN 300 MG CAP PO SCH ×2 (10:59→22:58)
[2017-04-17] MEDS: LORAZEPAM INJ 0.5 MG in SYRINGE 0.75 ML IV PRN (11:23)
[2017-04-17 15:00] VITALS: BP 126/81; PULSE 71; TEMP 36.7; O2SAT 94
--- NOTE | 2017-04-17 16:03 | Progress Note ---
Medicine Progress Note Date & Time of Visit: Apr 17, 2017 at 15:58. Subjective patient seen resting in bed comfortable states back pain is improving today denies incontinence, paresthesias, leg weakness or numbness denies other symptoms Objective Last 8 Hrs Date Time Temp Pulse Resp B/P (MAP) Pulse Ox O2 Delivery O2 Flow Rate FiO2 04/17/17 15:00 36.7 71 18 126/81 (96) 94 Room Air Physical Exam: General- oriented x 3, not in distress, speaks in sentences Head- atraumatic Eyes- EOMI, anicteric ENT- oropharynx clear Neck- supple, no JVD, no adenopathy, no thyromegaly Lungs- clear breath sounds bilaterally, no rales/wheezes Heart- regular rhythm; no murmur, normal rate Abdomen- normal bowel sounds, soft, nontender Extremities- no pretibial edema, no calf tenderness Neuro- alert, oriented x 3; no gross focal deficits Skin- warm & dry Assessment & Plan 1. Intractable back pain - possible Lumbar Spine Stenosis, Radiculopathy - CT lumbar spine: mild facet arthrosis - Ortho consulted, recommend MRI Lumbar spine - Pain Management consulted, Medrol Dosepak and Gabapentin started MRI Ordered, will follow up - appreciate Dr. Hylton and Dr. Castro's recommendations 2. Ongoing tobacco abuse. - counselling 3. HANS on CPAP DVT PROPHYLAXIS hep sub q DISPOSITION pending lives with daughter at home PT/OT in progress- may need Rehab Current Inpatient Medications: Current Inpatient Medications Medications (Trade) Dose Ordered Sig/Luca Route Start Time Stop Time Status Last Admin Dose Admin Lidocaine (Lidoderm Patch 5%) 1 patch QAM TD 04/17/17 09:00 05/17/17 08:59 Miscellaneous (Remove Lidoderm Patch) 1 ea DAILY@21 N/A 04/16/17 11:00 05/16/17 10:59 04/16/17 11:29 1 EA Ketorolac Tromethamine (Toradol Inj) 30 mg Q6H PRN IV 04/15/17 22:00 04/20/17 21:59 04/17/17 12:42 30 MG Ibuprofen (Advil Tab) 400 mg Q6H PRN PO 04/15/17 22:00 05/15/17 21:59 Prochlorperazine Edisylate 5 mg/ Syringe 5 ml @ 5 mls/min Q6H PRN IV 04/15/17 22:00 05/15/17 21:59 Morphine Sulfate (MoRPHine SULFATE INJ) 4 mg Q4H PRN IV 04/15/17 22:00 04/29/17 21:59 04/16/17 09:54 4 MG Tramadol HCl (Ultram Tab) not relieved ... Q4H PRN PO 04/15/17 22:00 05/15/17 21:59 04/16/17 11:28 50 MG Cyclobenzaprine HCl (Flexeril Tab) 10 mg TID PRN PO 04/15/17 22:00 05/15/17 21:59 04/17/17 06:26 10 MG Nicotine (Nicoderm Cq 21MG Patch) 1 patch QAM TD 04/16/17 09:00 05/16/17 08:59 Miscellaneous (Remove Nicoderm Patch) 1 ea HS N/A 04/16/17 21:00 05/16/17 20:59 Acetaminophen (Tylenol Tab) 650 mg Q4H PRN PO 04/15/17 22:00 05/15/17 21:59 Miscellaneous (Iv Fluids Completed) 1 ea PRN PRN N/A 04/15/17 22:45 04/15/18 22:44 Lorazepam 0.5 mg/ Syringe 1 ml @ 1 mls/min Q4H PRN IV 04/15/17 23:15 05/15/17 23:14 04/17/17 11:23 1 MLS/MIN Gabapentin (Neurontin Cap) 300 mg BID PO 04/17/17 09:00 05/17/17 08:59 04/17/17 10:59 300 MG Methylprednisolone (Medrol Tab) 8 mg 07,21 PO 04/17/17 10:00 04/17/17 21:01 04/17/17 10:59 8 MG Methylprednisolone (Medrol Tab) 4 mg 13,18 PO 04/17/17 13:00 04/17/17 18:01 04/17/17 14:01 4 MG Methylprednisolone (Medrol Tab) 4 mg 07,13,18 PO 04/18/17 07:00 04/18/17 18:01 Methylprednisolone (Medrol Tab) 8 mg HS PO 04/18/17 21:00 04/18/17 21:01 Methylprednisolone (Medrol Tab) 4 mg 07,13,18,21 PO 04/19/17 07:00 04/19/17 21:01 Methylprednisolone (Medrol Tab) 4 mg 07,13,21 PO 04/20/17 07:00 04/20/17 21:01 Methylprednisolone (Medrol Tab) 4 mg ,21 PO 04/21/17 07:00 04/21/17 21:01 Methylprednisolone (Medrol Tab) 4 mg 07 PO 04/22/17 07:00 04/22/17 07:01
[2017-04-17] MEDS ORDERED: HYDROmorphone INJ 1 MG/ML SYR ONE (18:42)
[2017-04-17] MEDS ORDERED: DIAZEPAM 5MG TAB ONE (18:42)
[2017-04-17 23:32] VITALS: BP 123/75; PULSE 61; TEMP 36.4; O2SAT 96
[2017-04-18 00:37] VITALS: BP 120/62
[2017-04-18] MEDS: MoRPHine SULFATE 4 MG/ML 1 ML CARP\\VIAL IV PRN (00:38)
[2017-04-18] MEDS: LORAZEPAM INJ 0.5 MG in SYRINGE 0.75 ML IV PRN (00:42)
--- NOTE | 2017-04-18 06:40 | Clinical Documentation Query ---
MARCELINA Rey : CLINICAL DOCUMENTATION QUERY Patient is a 61 year old female admitted for treatment of intractable back pain. Per nursing documentation, BMI noted to be 48.8 kg/m*m on admission. In order to capture the SOI and ROM associated with this diagnosis, please consider documentation of an associated condition as a requirement of CMS coding guidelines. In your clinical opinion is this patient being managed for: ( ) Morbid obesity, BMI 48.8 kg/m*m ( ) Not Agree ( ) Other explanation of clinical findings (Please Explain) ( ) Unable to determine (Please Define) ( ) Need to Discuss The medical record reflects the following clinical findings, treatment, and risk factors. Clinical Indicators: As above Treatment: AHA diet Risk Factors: Caloric intake > caloric expenditure, Thank You, Chalino Gann RN [phone]
[2017-04-18] MEDS: METHYLPREDNISOLONE 4 MG TAB PO SCH ×3 (06:51→17:51)
[2017-04-18] MEDS: NICOTINE 21 MG/24 HR TDSY TD SCH (07:31)
[2017-04-18] MEDS: LIDODERM (LIDOCAINE) PATCH 5% TD SCH (07:31)
[2017-04-18] MEDS: GABAPENTIN 300 MG CAP PO SCH ×2 (07:32→21:16)
[2017-04-18 07:40] VITALS: BP 138/78; PULSE 64; TEMP 36.5; O2SAT 92
[2017-04-18 09:57] VITALS: O2SAT 92
[2017-04-18] MEDS: IBUPROFEN 200 MG TAB PO PRN (12:53)
[2017-04-18 15:30] VITALS: BP 154/95; PULSE 69; TEMP 36.6; O2SAT 92
--- NOTE | 2017-04-18 17:28 | Progress Note ---
Medicine Progress Note Date & Time of Visit: Apr 18, 2017 at 17:26. Subjective patient seen resting in bed, comfortable states back pain is improved further today tolerated PT fine no other symptoms Objective Last 8 Hrs Date Time Temp Pulse Resp B/P (MAP) Pulse Ox O2 Delivery O2 Flow Rate FiO2 04/18/17 15:30 36.6 69 18 154/95 (114) 92 Room Air 04/18/17 15:15 Room Air 04/18/17 09:57 92 Room Air Physical Exam: General- oriented x 3, not in distress, speaks in sentences Eyes- anicteric Neck- supple, no JVD Lungs- clear breath sounds BL, no rales/wheezes Heart- regular rhythm; no murmur, normal rate Abdomen- normal bowel sounds, soft, nontender Extremities- no pretibial edema, no calf tenderness Neuro- alert, oriented x 3; no gross focal deficits Skin- warm & dry Assessment & Plan 1. Intractable back pain - possible Lumbar Spine Stenosis, Radiculopathy - CT lumbar spine: mild facet arthrosis - Ortho consulted, recommend MRI Lumbar spine - Pain Management consulted, Medrol Dosepak and Gabapentin started MRI Ordered--> patient was not able to tolerate - pain improving since yesterday will discuss with Dr. Castro if MRI still recommended at this time - PT/OT recommends Rehab, re-eval tomorrow - appreciate Dr. Hylton and Dr. Castro's recommendations 2. Ongoing tobacco abuse. - counselling 3. HANS on CPAP DVT PROPHYLAXIS hep sub q DISPOSITION pending lives with daughter at home PT/OT in progress- may need Rehab Current Inpatient Medications: Current Inpatient Medications Medications (Trade) Dose Ordered Sig/Luca Route Start Time Stop Time Status Last Admin Dose Admin Lidocaine (Lidoderm Patch 5%) 1 patch QAM TD 04/17/17 09:00 05/17/17 08:59 04/18/17 07:31 1 PATCH Miscellaneous (Remove Lidoderm Patch) 1 ea DAILY@21 N/A 04/16/17 11:00 05/16/17 10:59 04/16/17 11:29 1 EA Ketorolac Tromethamine (Toradol Inj) 30 mg Q6H PRN IV 04/15/17 22:00 04/20/17 21:59 04/17/17 12:42 30 MG Ibuprofen (Advil Tab) 400 mg Q6H PRN PO 04/15/17 22:00 05/15/17 21:59 04/18/17 12:53 400 MG Prochlorperazine Edisylate 5 mg/ Syringe 5 ml @ 5 mls/min Q6H PRN IV 04/15/17 22:00 05/15/17 21:59 04/17/17 21:25 5 MLS/MIN Morphine Sulfate (MoRPHine SULFATE INJ) 4 mg Q4H PRN IV 04/15/17 22:00 04/29/17 21:59 04/18/17 00:38 4 MG Tramadol HCl (Ultram Tab) not relieved ... Q4H PRN PO 04/15/17 22:00 05/15/17 21:59 04/16/17 11:28 50 MG Cyclobenzaprine HCl (Flexeril Tab) 10 mg TID PRN PO 04/15/17 22:00 05/15/17 21:59 04/17/17 06:26 10 MG Nicotine (Nicoderm Cq 21MG Patch) 1 patch QAM TD 04/16/17 09:00 05/16/17 08:59 Miscellaneous (Remove Nicoderm Patch) 1 ea HS N/A 04/16/17 21:00 05/16/17 20:59 Acetaminophen (Tylenol Tab) 650 mg Q4H PRN PO 04/15/17 22:00 05/15/17 21:59 Miscellaneous (Iv Fluids Completed) 1 ea PRN PRN N/A 04/15/17 22:45 04/15/18 22:44 Lorazepam 0.5 mg/ Syringe 1 ml @ 1 mls/min Q4H PRN IV 04/15/17 23:15 05/15/17 23:14 04/18/17 00:42 1 MLS/MIN Gabapentin (Neurontin Cap) 300 mg BID PO 04/17/17 09:00 05/17/17 08:59 04/18/17 07:32 300 MG Methylprednisolone (Medrol Tab) 4 mg ,,18 PO 04/18/17 07:00 04/18/17 18:01 04/18/17 12:52 4 MG Methylprednisolone (Medrol Tab) 8 mg HS PO 04/18/17 21:00 04/18/17 21:01 Methylprednisolone (Medrol Tab) 4 mg 07,13,18,21 PO 04/19/17 07:00 04/19/17 21:01 Methylprednisolone (Medrol Tab) 4 mg ,,21 PO 04/20/17 07:00 04/20/17 21:01 Methylprednisolone (Medrol Tab) 4 mg ,21 PO 04/21/17 07:00 04/21/17 21:01 Methylprednisolone (Medrol Tab) 4 mg 07 PO 04/22/17 07:00 04/22/17 07:01
[2017-04-18] MEDS ORDERED: METHYLPREDNISOLONE 4 MG TAB PO SCH (21:00)
[2017-04-18] MEDS: HEPARIN SOD 5000 UNIT/0.5 ML CARP SQ SCH (21:24)
[2017-04-18 22:55] VITALS: BP 154/68; PULSE 63; TEMP 36.5; O2SAT 93
[2017-04-19] MEDS: METHYLPREDNISOLONE 4 MG TAB PO SCH ×2 (06:07→11:58)
[2017-04-19] MEDS: HEPARIN SOD 5000 UNIT/0.5 ML CARP SQ SCH ×2 (06:08→14:13)
[2017-04-19] MEDS: TRAMADOL HCL 50 MG TAB PO PRN (06:22)
[2017-04-19 07:29] VITALS: BP 158/92; PULSE 75; TEMP 36.5; O2SAT 94
[2017-04-19] MEDS: NICOTINE 21 MG/24 HR TDSY TD SCH (07:29)
[2017-04-19] MEDS: GABAPENTIN 300 MG CAP PO SCH (07:29)
[2017-04-19] MEDS: LIDODERM (LIDOCAINE) PATCH 5% TD SCH (07:29)
[2017-04-19] MEDS: IBUPROFEN 200 MG TAB PO PRN (09:22)
--- NOTE | 2017-04-19 14:01 | Progress Note ---
Medicine Progress Note Date & Time of Visit: Apr 19, 2017 at 13:54. Subjective seen sitting up in bed, comfortable having lunch states back pain is much better able to ambulated better denies shooting pain, leg weakness/numbness/paresthesias no other symptoms states she is ready for discharge to Rehab today Objective Last 8 Hrs Date Time Temp Pulse Resp B/P (MAP) Pulse Ox O2 Delivery O2 Flow Rate FiO2 04/19/17 07:30 Room Air 04/19/17 07:29 36.5 75 16 158/92 (114) 94 Room Air Physical Exam: General- oriented x 3, not in distress, speaks in sentences Eyes- anicteric Neck- no JVD Lungs- clear BS Bilaterally, no rales/wheezes Heart- regular rhythm; no murmur, normal rate Abdomen- normal bowel sounds, soft, nontender Extremities- no pretibial edema, no calf tenderness Neuro- alert, oriented x 3; no gross focal deficits Skin- warm & dry Laboratory Results: Last 24 Hours Test 04/18/17 18:02 Prothrombin Time 10.5 SECONDS Prothromb Time International Ratio 1.0 Assessment & Plan 1. Intractable back pain - possible Lumbago, Lumbar Spine Stenosis, Radiculopathy - CT lumbar spine: mild facet arthrosis IMPRESSION: 1. No acute lumbar spine fracture or subluxation. 2. Mild multilevel degenerative disc disease and moderate multilevel facet arthrosis of the lumbar spine. Suboptimal evaluation of central canal and neural foramen given CT technique. Suspected mild multilevel central canal or neural foraminal stenosis. No disc herniation identified by CT. - Ortho consulted Dr. Hylton, recommend MRI Lumbar spine - Pain Management consulted Dr. Castro, Medrol Dosepak and Gabapentin started MRI Ordered--> patient was not able to tolerate - pain improving since Medrol Dosepak and Gabapentin started discussed with Dr. Castro, MRI of the Lumbar Spine cancelled for now - PT/OT recommends Rehab, patient agreeable - appreciate Dr. Hylton and Dr. Castro's recommendations 2. Ongoing tobacco abuse. - counselling 3. Obstructive Sleep Apnea - on CPAP DVT PROPHYLAXIS hep subcutaneous given DISPOSITION d/c to Rehab ff up with PCP once discharged from Rehab Current Inpatient Medications: Current Inpatient Medications Medications (Trade) Dose Ordered Sig/Luca Route Start Time Stop Time Status Last Admin Dose Admin Lidocaine (Lidoderm Patch 5%) 1 patch QAM TD 04/17/17 09:00 05/17/17 08:59 04/19/17 07:29 1 PATCH Miscellaneous (Remove Lidoderm Patch) 1 ea DAILY@21 N/A 04/16/17 11:00 05/16/17 10:59 04/18/17 21:16 1 EA Ketorolac Tromethamine (Toradol Inj) 30 mg Q6H PRN IV 04/15/17 22:00 04/20/17 21:59 04/17/17 12:42 30 MG Ibuprofen (Advil Tab) 400 mg Q6H PRN PO 04/15/17 22:00 05/15/17 21:59 04/19/17 09:22 400 MG Prochlorperazine Edisylate 5 mg/ Syringe 5 ml @ 5 mls/min Q6H PRN IV 04/15/17 22:00 05/15/17 21:59 04/17/17 21:25 5 MLS/MIN Morphine Sulfate (MoRPHine SULFATE INJ) 4 mg Q4H PRN IV 04/15/17 22:00 04/29/17 21:59 04/18/17 00:38 4 MG Tramadol HCl (Ultram Tab) not relieved ... Q4H PRN PO 04/15/17 22:00 05/15/17 21:59 04/19/17 06:22 25 MG Cyclobenzaprine HCl (Flexeril Tab) 10 mg TID PRN PO 04/15/17 22:00 05/15/17 21:59 04/17/17 06:26 10 MG Nicotine (Nicoderm Cq 21MG Patch) 1 patch QAM TD 04/16/17 09:00 05/16/17 08:59 Miscellaneous (Remove Nicoderm Patch) 1 ea HS N/A 04/16/17 21:00 05/16/17 20:59 Acetaminophen (Tylenol Tab) 650 mg Q4H PRN PO 04/15/17 22:00 05/15/17 21:59 Miscellaneous (Iv Fluids Completed) 1 ea PRN PRN N/A 04/15/17 22:45 04/15/18 22:44 Lorazepam 0.5 mg/ Syringe 1 ml @ 1 mls/min Q4H PRN IV 04/15/17 23:15 05/15/17 23:14 04/18/17 00:42 1 MLS/MIN Gabapentin (Neurontin Cap) 300 mg BID PO 04/17/17 09:00 05/17/17 08:59 04/19/17 07:29 300 MG Methylprednisolone (Medrol Tab) 4 mg ,13,18,21 PO 04/19/17 07:00 04/19/17 21:01 04/19/17 11:58 4 MG Methylprednisolone (Medrol Tab) 4 mg ,13,21 PO 04/20/17 07:00 04/20/17 21:01 Methylprednisolone (Medrol Tab) 4 mg 07,21 PO 04/21/17 07:00 04/21/17 21:01 Methylprednisolone (Medrol Tab) 4 mg 07 PO 04/22/17 07:00 04/22/17 07:01 Heparin Sodium (Porcine) (Heparin Sq 5000 Unit/0.5ml) 5,000 unit Q8 SQ 04/18/17 22:00 05/18/17 21:59 04/19/17 06:08 5,000 UNIT
[2017-04-19] MEDS ORDERED: NICO21DI4 TD (14:05)
[2017-04-19] MEDS ORDERED: MDR4 PO (14:05)
[2017-04-19] MEDS ORDERED: NRN300 PO (14:05)
--- NOTE | 2017-04-19 14:07 | Discharge Instructions ---
Discharge Instructions Date of Service Apr 19, 2017. Admission Reason for Admission: Intractable Back Pain Discharge Discharge Diagnosis / Problem: INTRACTABLE LOW BACK PAIN Discharge Goals Goal(s): Diagnostic testing, Therapeutic intervention Activity Recommendations Activity Level: Assistance Required Therapies: Physical Therapy, Occupational Therapy . Additional Information Patient informed of condition: Yes Advance Directives: No (UNKNOWN) DNR: No (PATIENT IS FULL CODE) Level of Care: Acute Rehab Communicable Disease: No Prognosis: Improving Instructions / Follow-Up Instructions / Follow-Up PLEASE REFER TO ACCOMPANYING HOSPITAL DISCHARGE SUMMARY Current Hospital Diet Patient's current hospital diet: AHA Diet (Heart Healthy) Discharge Diet Recommended Diet: AHA Diet (Heart Healthy) Procedures Procedures Performed: CT SCAN LUMBAR SPINE, XRAY LUMBAR SPINE Pending Studies Studies pending at discharge: no Physician Orders On Transfer Special Precautions: FALL PRECAUTIONS; PLEASE REFER TO ACCOMPANYING HOSPITAL DISCHARGE SUMMARY Medical Emergencies . Who to Call and When: Medical Emergencies: If at any time you feel your situation is an emergency, please call 911 immediately. . Non-Emergent Contact Non-Emergency issues call your: Primary Care Provider Call Non-Emergent contact if: you have a fever, your pain is not controlled, you have any medication questions . Past History Medical & Surgical History: (1) Claustrophobia (2) Intractable back pain (3) Intestinal gangrene (4) DIVERTICULITIS COLON (W/O MENT OF HEMORRHAGE) (5) Hernia (6) TOBACCO USE DISORDER (7) Tumors (8) borken jaw (9) Asthma (10) Bronchitis (11) PNA (pneumonia) (12) Ulcer . "Provider Documentation" section prepared by Doe Bloom. . Core Measure Problem Core Measures: None
--- NOTE | 2017-04-19 14:14 | Discharge Summary ---
Discharge Summary Date of Service Apr 19, 2017. Discharge Summary Admission Date: Apr 17, 2017 at 09:50 Discharge Date: Apr 19, 2017 Discharge Disposition: Rehab Principal Diagnosis: Intractable back pain - possible Lumbago, Lumbar Spine Stenosis, Radiculopathy Secondary Diagnoses/Problems: Please refer to hospital course below. Procedures: LUMBAR SPINE WITHOUT CLINICAL HISTORY: Low back pain. Back spasms. COMPARISON STUDY: No previous studies for comparison. TECHNIQUE: Axial images of the lumbar spine were obtained without IV contrast. Sagittal and coronal reconstructions were viewed. FINDINGS: Alignment of the lumbar spine is anatomic. Vertebral body heights are maintained. No fracture or osseous lesion is identified. Paravertebral soft tissues are unremarkable. There is moderate atherosclerotic plaque of the abdominal aorta which is normal in caliber. Central canal and neural foramen are suboptimally assessed by CT. However, there is mild multilevel degenerative disc disease and moderate multilevel facet arthrosis. There is no evidence for severe central canal stenosis. There is mild multilevel neural foraminal stenosis and suspected mild multilevel central canal stenosis. IMPRESSION: 1. No acute lumbar spine fracture or subluxation. 2. Mild multilevel degenerative disc disease and moderate multilevel facet arthrosis of the lumbar spine. Suboptimal evaluation of central canal and neural foramen given CT technique. Suspected mild multilevel central canal or neural foraminal stenosis. No disc herniation identified by CT. LUMBAR SPINE 4 VIEWS CLINICAL HISTORY: Back pain COMPARISON STUDY: CT scan dated 04/15/2017 FINDINGS: AP and lateral standing views of the lumbar spine are provided for interpretation. No fractures or subluxations are visualized. No destructive lesions are evident. IMPRESSION: No fractures or subluxations identified. Consultations: Ortho Spine Dr. Hylton, Pain Management Dr. Castro Pending Studies/Follow-Up: Please refer to hospital course below. Medication Reconciliation New Medications: Gabapentin (Gabapentin) 300 Mg Cap 300 MG PO BID for 30 Days, #60 CAP Methylprednisolone (Methylprednisolone) 4 Mg Tab 4 MG PO UD for 4 Days, TAB April 19, 2017: 1 tab po at 18:00 and 21:April 20, 2017: 1 tab po at 7:00, 13:00, 21:April 21, 2017: 1 tab po at 7:00 and 21:00 April 22, 2017: 1 tab po at 7:00 then STOP Nicotine (Nicoderm Cq) 21 Mg/24 Hr Dis 1 PATCH TD QAM for 15 Days Continued Medications: Cyclobenzaprine Hcl (Flexeril) 10 Mg Tab 10 MG PO TID PRN for SPASMS, #21 TAB Lidocaine (Lidocaine) 1 Patch Tdsy 1 PATCH TOP DAILY PRN for Pain SALONPAS 4% LIDOCAINE PATCH Tramadol-Acetaminophen (Ultracet) 1 Tab Tab 1 TAB PO TID PRN for Pain Discontinued Medications: Diazepam (Valium) 5 Mg Tab 5 MG PO TID, TAB Admission Information HPI (per Admitting provider): DATE OF ADMISSION: 04/15/2017 PRIMARY CARE PHYSICIAN: Dr. Corey Prabhakar MD. CHIEF COMPLAINT: Back pain. HISTORY OF PRESENT ILLNESS: History obtained from patient, family, and records. Medical history is significant for HANS on CPAP, ongoing tobacco abuse, chronic back pain. As per patient account, she has had chronic back pain since 2010. Surgery recommended in [place] however patient refused. Intermittent "flareups" of back pain over the last few years. The last few days, patient noted worsening of low back pain with radiation to the left lower extremity. Left lower extremity weakness noted. No unusual incontinence. Patient was seen at the ER 2 nights ago. Discharged on lidocaine patch and benzo as muscle relaxant. Patient returned to the ER because of intractable pain. She could not walk around. No fever, no chills. MEDICAL HISTORY: As above. SURGERIES: She has had bowel surgery, oophorectomy. HOME MEDICATIONS: Include Flexeril, Valium, lidocaine, Ultracet. ALLERGIES: ERYTHROMYCIN, PENICILLIN, SULFA. FAMILY HISTORY: Hypertension, diabetes. PERSONAL AND SOCIAL HISTORY: One pack daily. No chronic intake of alcoholic beverages. 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 REVIEW OF SYSTEMS: As per HPI, all 10 systems reviewed. All other ROS negative. Physical Exam (per Admitting): PHYSICAL EXAMINATION: VITAL SIGNS: Blood pressure noted to be 135/82, pulse rate 70, RR 18, temperature 36.3, sats 95 on room air. GENERAL: Noted to be uncomfortable. No respiratory distress. SKIN: Normal color, warm. HEENT: Linneus palpebral conjunctiva. No ptosis. Dry mucosa. NECK: Short neck. No tenderness. CHEST: Decreased effort. No tenderness. HEART: Regular rate and rhythm, no murmur. ABDOMEN: Soft. Some distention BACK: tenderness on the low back. Positive straight leg raise exam on the left. EXTREMITIES: Minimal LE edema, chronic, no tenderness. No other gross deformities. NEUROLOGIC: Coherent. No gross focality except for back. Hospital Course 1. Intractable back pain - possible Lumbago, Lumbar Spine Stenosis, Radiculopathy - CT lumbar spine: mild facet arthrosis IMPRESSION: 1. No acute lumbar spine fracture or subluxation. 2. Mild multilevel degenerative disc disease and moderate multilevel facet arthrosis of the lumbar spine. Suboptimal evaluation of central canal and neural foramen given CT technique. Suspected mild multilevel central canal or neural foraminal stenosis. No disc herniation identified by CT. - Ortho consulted Dr. Hylton, recommend MRI Lumbar spine - Pain Management consulted Dr. Castro, Medrol Dosepak and Gabapentin started MRI Ordered--> patient was not able to tolerate - pain improving since Medrol Dosepak and Gabapentin started discussed with Dr. Castro, MRI of the Lumbar Spine cancelled for now - PT/OT recommends Rehab, patient agreeable - appreciate Dr. Hylton and Dr. Castro's recommendations 2. Ongoing tobacco abuse. - counselling 3. Obstructive Sleep Apnea - on CPAP 4. Moderate Atherosclerotic Plaque- Abdominal Aorta - monitor Lipid Panel DVT PROPHYLAXIS hep subcutaneous given DISPOSITION d/c to Rehab ff up with PCP once discharged from Rehab Total time spent on discharge = 30 minutes This includes examination of the patient, discharge planning, medication reconciliation, and communication with other providers. Discharge Instructions Discharge Instructions Date of Service Apr 19, 2017. Admission Reason for Admission: Intractable Back Pain Discharge Discharge Diagnosis / Problem: INTRACTABLE LOW BACK PAIN Discharge Goals Goal(s): Diagnostic testing, Therapeutic intervention Activity Recommendations Activity Level: Assistance Required Therapies: Physical Therapy, Occupational Therapy . Additional Information Patient informed of condition: Yes Advance Directives: No (UNKNOWN) DNR: No (PATIENT IS FULL CODE) Level of Care: Acute Rehab Communicable Disease: No Prognosis: Improving Instructions / Follow-Up Instructions / Follow-Up PLEASE REFER TO [facility]ANYING [facility]OS[facility]ITAL DISCHARGE SUMMARY Current Hospital Diet Patient's current hospital diet: AHA Diet (Heart Healthy) Discharge Diet Recommended Diet: AHA Diet (Heart Healthy) Procedures Procedures Performed: CT SCAN LUMBAR SPINE, XRAY LUMBAR SPINE Pending Studies Studies pending at discharge: no Physician Orders On Transfer Special Precautions: FALL PRECAUTIONS; PLEASE REFER TO ACCOMPANYING HOSPITAL DISCHARGE SUMMARY Medical Emergencies . Who to Call and When: Medical Emergencies: If at any time you feel your situation is an emergency, please call 911 immediately. . Non-Emergent Contact Non-Emergency issues call your: Primary Care Provider Call Non-Emergent contact if: you have a fever, your pain is not controlled, you have any medication questions . Past History Medical & Surgical History: (1) Claustrophobia (2) Intractable back pain (3) Intestinal gangrene (4) DIVERTICULITIS COLON (W/O MENT OF HEMORRHAGE) (5) Hernia (6) TOBACCO USE DISORDER (7) Tumors (8) borken jaw (9) Asthma (10) Bronchitis (11) PNA (pneumonia) (12) Ulcer . "Provider Documentation" section prepared by Doe Bloom. . Core Measure Problem Core Measures: None
[2017-04-19 14:19] VITALS: BP 158/92; PULSE 75; TEMP 36.5; O2SAT 94
[2017-04-20] MEDS ORDERED: METHYLPREDNISOLONE 4 MG TAB PO SCH (07:00)
[2017-04-21] MEDS ORDERED: METHYLPREDNISOLONE 4 MG TAB PO SCH (07:00)
[2017-04-22] MEDS ORDERED: METHYLPREDNISOLONE 4 MG TAB PO SCH (07:00)
== END 2017-04-19 15:56 | DRG 552 ==
LOC: C.EDB 18:54 → C.MSN 21:34 → ENRESERV 21:58 → OBSVTOIN 04-17 09:50
PROVIDERS: ADMIT Internal Medicine; ATTEND Internal Medicine
DX: M48.061 Spinal stenosis, lumbar region without neurogenic claudication (principal); Z68.42 Body mass index [BMI] 45.0-49.9, adult; M54.16 Radiculopathy, lumbar region; F40.240 Claustrophobia; J45.909 Unspecified asthma, uncomplicated; G47.33 Obstructive sleep apnea (adult) (pediatric); E66.01 Morbid (severe) obesity due to excess calories; F17.200 Nicotine dependence, unspecified, uncomplicated; Z79.899 Other long term (current) drug therapy; Z88.0 Allergy status to penicillin; Z88.2 Allergy status to sulfonamides; Z88.1 Allergy status to other antibiotic agents